=== PATIENT | male | born 1950 | race Caucasian/White ===

== ENCOUNTER 2017-11-25 06:30 | Inpatient (IN) | payer MEDICARE, BC ==
[2017-11-25] MEDS ORDERED: Sodium Chloride 0.9% 1,000 ML IV SCH ×2 (06:45→10:00)
[2017-11-25 06:55] LABS: CHLORIDE,CL 101 mmol/L (98-107); SODIUM,NA 139 mmol/L (136-145)
--- NOTE | 2017-11-25 07:14 | EDM.PDOC ---
ED HPI GENERAL MEDICAL PROBLEM - General Chief Complaint: General Stated Complaint: vomiting Time Seen by Provider: 11/25/17 06:45 Source of Information: Reports: Patient History Limitations: Reports: No Limitations - History of Present Illness INITIAL COMMENTS - FREE TEXT/NARRATIVE: There is Dr. 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 has been having nausea and vomiting all night long with brown emesis by gastroscope which is gastro occult was brought in by ambulance secondary to nausea and vomiting he did receive 4 mg of Zofran IM> Onset: Sudden Duration: Day(s): (1 day) Location: Reports: Abdomen Quality: Reports: Ache Severity: Moderate Worsens with: Reports: None Context: Reports: Other (History of rectal cancer with metastasis to liver pelvis and stomach) Associated Symptoms: Reports: Loss of Appetite, Nausea/Vomiting Treatments AGRICULTURAL CHEMIST: Reports: Other (see below) Other Treatments AGRICULTURAL CHEMIST: zofran per EMS Throat Pain Score (Numeric/FACES): 5 - Related Data Allergies Allergy/AdvReac Type Severity Reaction Status Date / Time No Known Allergies Allergy Verified 11/25/17 06:31 Home Meds: Home Meds Levothyroxine Sodium [Synthroid] 250 mcg PO DAILY 04/23/13 [History] metFORMIN [Glucophage XR] 500 mg PO DAILY 04/23/13 [History] Sertraline HCl 100 mg PO DAILY 07/09/15 [History] Hydrocortisone 10 mg PO QPM 11/25/17 [History] Hydrocortisone 20 mg PO DAILY 11/25/17 [History] Non-Formulary Medication [NF Drug] 1 tab PO BID 11/25/17 [History] Omeprazole 20 mg PO DAILY 11/25/17 [History] Ondansetron [Zofran] 8 mg PO TID PRN 11/25/17 [History] Past Medical History HEENT History: Reports: Impaired Vision Cardiovascular History: Reports: Hypertension Other Gastrointestinal History: vomiting dark brown liquid Psychiatric History: Reports: Depression Endocrine/Metabolic History: Reports: Diabetes, Type II Oncologic (Cancer) History: Reports: Other (See Below) Other Oncologic History: Anal - Past Surgical History Other GI Surgeries/Procedures: liver cancer, anal cancer Social & Family History - Caffeine Use Caffeine Use: Reports: None ED ROS GENERAL - Review of Systems Review Of Systems: See Below Constitutional: Reports: Weakness, Weight Loss Respiratory: Reports: Shortness of Breath (Activity tolerance decrease) Cardiovascular: Reports: No Symptoms Endocrine: Reports: No Symptoms GI/Abdominal: Reports: Anorexia, Distension, Nausea, Vomiting : Reports: Incontinence Musculoskeletal: Reports: Muscle Stiffness Skin: Reports: Change in Color (Secondary to Lovenox injection while hospitalized) ED EXAM, GENERAL - Physical Exam Exam: See Below Exam Limited By: Altered Mental Status General Appearance: WD/WN, Mild Distress, Obese Ears: Normal External Exam, Normal Canal, Hearing Grossly Normal, Normal TMs Nose: Normal Inspection, Normal Mucosa, No Blood Throat/Mouth: Normal Inspection, Normal Lips, Normal Teeth, Normal Gums, Normal Oropharynx, Normal Voice, No Airway Compromise Head: Atraumatic, Normocephalic, Facial Swelling Respiratory/Chest: Decreased Breath Sounds, Crackles Cardiovascular: Normal Peripheral Pulses, Regular Rate, Rhythm, No Edema, No Gallop, No JVD, No Murmur, No Rub GI/Abdominal: Non-Tender, No Mass, Distended, Abnormal Bowel Sounds (Male) Exam: Deferred Rectal (Males) Exam: Deferred Extremities: Normal Inspection, Normal Range of Motion, Non-Tender Neurological: CN II-XII Intact Psychiatric: Depressed Mood Skin Exam: Warm, Dry, Intact, Normal Color, No Rash Lymphatic: No Adenopathy Course - Vital Signs Last Recorded V/S: Last Vital Signs Temp 97.8 F 11/25/17 06:35 Pulse 121 H 11/25/17 06:35 Resp 22 H 11/25/17 06:35 BP 131/77 11/25/17 06:35 Pulse Ox 94 L 11/25/17 06:35 - Orders/Labs/Meds Orders: Active Orders 24 hr Category Date Time Status Implanted Port Access [RC] DAILY Care 11/25/17 06:45 Active OCCULT BLOOD, GASTRIC [OP] Stat Lab 11/25/17 06:48 Ordered Sodium Chloride 0.9% [Normal Saline] 1,000 ml Med 11/25/17 06:45 Active IV ASDIRECTED Medication Orders Sodium Chloride (Normal Saline) 1,000 mls @ 500 mls/hr IV ASDIRECTED [facility] Last Admin: 11/25/17 06:55 Dose: 500 mls/hr Labs: Laboratory Tests 11/25/17 11/25/17 Range/Units 06:41 06:41 WBC 12.6 H (4.0-10.2) K/uL RBC 3.46 L (4.33-5.41) M/uL Hgb 10.8 L (13.1-16.8) g/dL Hct 34.4 L (39.0-49.0) % MCV 99.4 H (84.0-98.0) fL MCH 31.2 (28.2-33.3) pg MCHC 31.4 L (31.7-36.0) g/dL RDW 20.0 H (11.2-14.1) % Plt Count 104 L (150-350) K/uL Neut % (Auto) 85.7 H (45.0-80.0) % Lymph % (Auto) 4.9 L (10.0-50.0) % [place] % (Auto) 9.0 (2.0-14.0) % Eos % (Auto) 0.3 (0.0-5.0) % Baso % (Auto) 0.1 (0.0-2.0) % Neut # (Auto) 10.80 H (1.40-7.00) K/uL Lymph # (Auto) 0.62 (0.50-3.50) K/uL [place] # (Auto) 1.14 H (0.00-1.00) K/uL Eos # (Auto) 0.04 (0.00-0.50) K/uL Baso # (Auto) 0.01 (0.00-0.20) K/uL Sodium 139 (136-145) mmol/L Potassium 3.7 (3.5-5.1) mmol/L Chloride 101 (98-107) mmol/L Carbon Dioxide 25.6 (21.0-32.0) mmol/L BUN 26 H (7-18) mg/dL Creatinine 0.97 (0.51-1.17) mg/dL Est Cr Clr Drug Dosing 74.91 mL/min Estimated GFR (MDRD) > 60 mL/min Glucose 145 H (74-106) mg/dL Calcium 9.4 (8.5-10.1) mg/dL Meds: Medications Generic Name Dose Route Start Last Admin Trade Name Freq PRN Reason Stop Dose Admin Sodium Chloride 1,000 mls @ 500 mls/hr 11/25/17 06:45 11/25/17 06:55 Normal Saline IV 500 mls/hr ASDIRECTED [facility] Administration Departure - Departure Time of Disposition: 09:02 Disposition: Admitted As Inpatient 67 Condition: Fair Clinical Impression: Sepsis, Anal carcinoma, History of known metastasis to liver, Metastasis to bone - Discharge Information Care Plan Goals: Patient will be admitted for antibiotics observation and hydration - Problem List & Annotations (1) History of known metastasis to liver SNOMED Code(s): 864539424 Code(s): Z85.05 - PERSONAL HISTORY OF MALIGNANT NEOPLASM OF LIVER Status: Acute (2) Sepsis SNOMED Code(s): 29111112 Code(s): A41.9 - SEPSIS, UNSPECIFIED ORGANISM Status: Acute Annotation/ Comment:: patient will be sent home to go to radiation treatment. if they do not have beds in [place] to treat sepsis and patients needs further treatment, he will be readmitted here for care. Qualifiers: Sepsis type: sepsis due to unspecified organism Qualified Code(s): A41.9 - Sepsis, unspecified organism (3) Anal carcinoma SNOMED Code(s): 999309218, 728006791 Code(s): C21.0 - MALIGNANT NEOPLASM OF ANUS, UNSPECIFIED Status: Acute Annotation/Comment:: Patient will be admitted to hospital will obtain a CAT scan of the abdomen and start him on antibiotics discussed with Dr. Krause oncology (4) Metastasis to bone Status: Acute - Problem List Review Problem List Initiated/Reviewed/Updated: Yes - My Orders Last 24 Hours: My Active Orders 11/25/17 06:45 Implanted Port Access [RC] DAILY Sodium Chloride 0.9% [Normal Saline] 1,000 ml IV ASDIRECTED 11/25/17 06:48 OCCULT BLOOD, GASTRIC [OP] Stat - Assessment/Plan Admission H&P: Please use this note as an admission H&P Last 24 Hours: My Active Orders 11/25/17 06:45 Implanted Port Access [RC] DAILY Sodium Chloride 0.9% [Normal Saline] 1,000 ml IV ASDIRECTED 11/25/17 06:48 OCCULT BLOOD, GASTRIC [OP] Stat Plan: Patient will be admitted to the hospital for control nausea vomiting and possible sepsis
[2017-11-25] MEDS ORDERED: Ondansetron 4 MG/2 ML SDV IVPUSH ONE (07:17)
[2017-11-25] MEDS ORDERED: Pantoprazole 40 MG Vial IVPUSH ONE (07:18)
[2017-11-25] MEDS ORDERED: Ondansetron 4 MG/2 ML SDV IVPUSH PRN (09:32)
[2017-11-25] MEDS ORDERED: Albuterol/Ipratropium 3.0-0.5 MG/3 ML Neb Soln NEB PRN (09:32)
[2017-11-25] MEDS: Piperacillin/Tazobactam 3.375 GM in Sodium Chloride 0.9% 100 ML IV SCH ×2 (10:52→15:49)
[2017-11-25] MEDS ORDERED: Iopamidol 612 MG/ML 100 ML Bottle IVPUSH ONE (11:47)
[2017-11-25] MEDS ORDERED: Furosemide 40 MG/4 ML VIAL IVPUSH ONE (12:04)
[2017-11-25 12:30] VITALS: BP 145/74
--- NOTE | 2017-11-25 15:49 | PCM.SN ---
- Free Text/Narrative Note: Patient is a 67-year-old admitted with rectal CA with metastasis underwent CAT scan of the stomach revealed complete obstruction of upper small bowel at this time patient will be placed on an nothing by mouth diet start a NG tube to low intermittent suction discuss plan with Dr. Ryder oncology at [place] will transfer to oncology at [place] for further workup and treatment
--- NOTE | 2017-11-25 15:55 | PCM.DCSUM1 ---
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 Diagnosis: Stroke: No - Discharge Data Discharge Date: 11/25/17 Discharge Disposition: DC/Tfer to Acute Hospital 02 Condition: Poor - Discharge Diagnosis/Problem(s) (1) History of known metastasis to liver SNOMED Code(s): 602939530 ICD Code: Z85.05 - PERSONAL HISTORY OF MALIGNANT NEOPLASM OF LIVER Status: Acute Current Visit: Yes (2) Sepsis SNOMED Code(s): 82028679 ICD Code: A41.9 - SEPSIS, UNSPECIFIED ORGANISM Status: Acute Current Visit: Yes Problem Details: patient will be sent home to go to radiation treatment. if they do not have beds in [place] to treat sepsis and patients needs further treatment, he will be readmitted here for care. Qualifiers: Sepsis type: sepsis due to unspecified organism Qualified Code(s): A41.9 - Sepsis, unspecified organism (3) Anal carcinoma SNOMED Code(s): 370371417, 559038305 ICD Code: C21.0 - MALIGNANT NEOPLASM OF ANUS, UNSPECIFIED Status: Acute Current Visit: Yes Problem Details: CAT scan report complete obstruction will transfer to [place] oncology Dr. Ryder (4) Metastasis to bone Status: Acute Current Visit: Yes - Patient Instructions Diet: NPO Driving: Do Not Drive Notify Provider of: Nausea and/or Vomiting - Discharge Plan Home Medications: Home Meds Levothyroxine Sodium [Synthroid] 250 mcg PO DAILY 04/23/13 [History] metFORMIN [Glucophage XR] 500 mg PO DAILY 04/23/13 [History] Sertraline HCl 100 mg PO DAILY 07/09/15 [History] Hydrocortisone 10 mg PO QPM 11/25/17 [History] Hydrocortisone 20 mg PO DAILY 11/25/17 [History] Non-Formulary Medication [NF Drug] 1 tab PO BID 11/25/17 [History] Omeprazole 20 mg PO DAILY 11/25/17 [History] Ondansetron [Zofran] 8 mg PO TID PRN 11/25/17 [History] Forms: ED Department Discharge Referrals: PCP,None [Primary Care Provider] - - Discharge Summary/Plan Comment DC Time >30 min.: No Discharge Summary/Plan Comment: Patient transferred to oncology Dr. Ryder for further workup and treatment - General Info Date of Service: 11/25/17 Functional Status: Reports: New Symptoms (Intestinal obstruction) - Review of Systems General: Reports: Weakness, Fatigue HEENT: Reports: No Symptoms Pulmonary: Reports: Shortness of Breath Cardiovascular: Reports: No Symptoms Gastrointestinal: Reports: Decreased Appetite, Nausea, Vomiting Genitourinary: Reports: Incontinence Musculoskeletal: Reports: No Symptoms Skin: Reports: No Symptoms Neurological: Reports: Confusion Psychiatric: Reports: Agitation - Patient Data Vitals - Most Recent: Last Vital Signs Temp 97.7 F 11/25/17 12:00 Pulse 110 H 11/25/17 12:00 Resp 16 11/25/17 12:00 BP 145/74 H 11/25/17 12:00 Pulse Ox 95 11/25/17 12:00 Weight - Most Recent: 265 lb I&O - Last 24 hours: Intake & Output 11/25/17 11/25/17 11/25/17 06:59 14:59 22:59 Intake Total 240 Balance 240 Lab Results - Last 24 hrs: Laboratory Results - last 24 hr 11/25/17 11/25/17 11/25/17 Range/Units 06:40 06:40 06:41 WBC 12.6 H (4.0-10.2) K/uL RBC 3.46 L (4.33-5.41) M/uL Hgb 10.8 L (13.1-16.8) g/dL Hct 34.4 L (39.0-49.0) % MCV 99.4 H (84.0-98.0) fL MCH 31.2 (28.2-33.3) pg MCHC 31.4 L (31.7-36.0) g/dL RDW 20.0 H (11.2-14.1) % Plt Count 104 L (150-350) K/uL Neut % (Auto) 85.7 H (45.0-80.0) % Lymph % (Auto) 4.9 L (10.0-50.0) % [place] % (Auto) 9.0 (2.0-14.0) % Eos % (Auto) 0.3 (0.0-5.0) % Baso % (Auto) 0.1 (0.0-2.0) % Neut # (Auto) 10.80 H (1.40-7.00) K/uL Lymph # (Auto) 0.62 (0.50-3.50) K/uL [place] # (Auto) 1.14 H (0.00-1.00) K/uL Eos # (Auto) 0.04 (0.00-0.50) K/uL Baso # (Auto) 0.01 (0.00-0.20) K/uL Sodium (136-145) mmol/L Potassium (3.5-5.1) mmol/L Chloride (98-107) mmol/L Carbon Dioxide (21.0-32.0) mmol/L BUN (7-18) mg/dL Creatinine (0.51-1.17) mg/dL Est Cr Clr Drug Dosing mL/min Estimated GFR (MDRD) mL/min Glucose (74-106) mg/dL Lactic Acid 5.0 H (0.4-2.0) mmol/L Calcium (8.5-10.1) mg/dL NT-Pro-B Natriuret Pep 1285 H (0-125) pg/mL Specimen Type Urine Color Urine Appearance Urine pH (5.0-9.0) Ur Specific [place]ore (1.005-1.030) Urine Protein (NEGATIVE) mg/dL Urine Glucose (UA) (NEGATIVE) mg/dL Urine Ketones (NEGATIVE) mg/dL Urine Occult Blood (NEGATIVE) Urine Nitrite (NEGATIVE) Urine Bilirubin (NEGATIVE) Urine Urobilinogen (0.2-1.0) E.U./dL Ur Leukocyte Esterase (NEGATIVE) Urine RBC /HPF Urine WBC /HPF Ur Epithelial Cells /LPF Other Crystals /HPF Amorphous Sediment (0/HPF) /HPF Urine Bacteria (NONE TO FEW) /HPF Hyaline Casts (NEGATIVE) /LPF 11/25/17 11/25/17 Range/Units 06:41 10:00 WBC (4.0-10.2) K/uL RBC (4.33-5.41) M/uL Hgb (13.1-16.8) g/dL Hct (39.0-49.0) % MCV (84.0-98.0) fL MCH (28.2-33.3) pg MCHC (31.7-36.0) g/dL RDW (11.2-14.1) % Plt Count (150-350) K/uL Neut % (Auto) (45.0-80.0) % Lymph % (Auto) (10.0-50.0) % [place] % (Auto) (2.0-14.0) % Eos % (Auto) (0.0-5.0) % Baso % (Auto) (0.0-2.0) % Neut # (Auto) (1.40-7.00) K/uL Lymph # (Auto) (0.50-3.50) K/uL [place] # (Auto) (0.00-1.00) K/uL Eos # (Auto) (0.00-0.50) K/uL Baso # (Auto) (0.00-0.20) K/uL Sodium 139 (136-145) mmol/L Potassium 3.7 (3.5-5.1) mmol/L Chloride 101 (98-107) mmol/L Carbon Dioxide 25.6 (21.0-32.0) mmol/L BUN 26 H (7-18) mg/dL Creatinine 0.97 (0.51-1.17) mg/dL Est Cr Clr Drug Dosing 74.91 mL/min Estimated GFR (MDRD) > 60 mL/min Glucose 145 H (74-106) mg/dL Lactic Acid (0.4-2.0) mmol/L Calcium 9.4 (8.5-10.1) mg/dL NT-Pro-B Natriuret Pep (0-125) pg/mL Specimen Type [place] Urine Color Dark yellow Urine Appearance Slightly cloudy Urine pH 5.5 (5.0-9.0) Ur Specific Commodore 1.015 (1.005-1.030) Urine Protein 30 H (NEGATIVE) mg/dL Urine Glucose (UA) Negative (NEGATIVE) mg/dL Urine Ketones 15 H (NEGATIVE) mg/dL Urine Occult Blood Trace-intact H (NEGATIVE) Urine Nitrite Negative (NEGATIVE) Urine Bilirubin Moderate H (NEGATIVE) Urine Urobilinogen 2.0 H (0.2-1.0) E.U./dL Ur Leukocyte Esterase Negative (NEGATIVE) Urine RBC 5-10 H /HPF Urine WBC 0-5 /HPF Ur Epithelial Cells Many H /LPF Other Crystals Moderate /HPF Amorphous Sediment Moderate H (0/HPF) /HPF Urine Bacteria Few (NONE TO FEW) /HPF Hyaline Casts Few H (NEGATIVE) /LPF EDMUNDO Results - Last 24 hrs: Microbiology 11/25/17 06:48 Gastric Occult Blood - Final Gastric Fluid Med Orders - Current: Current Medications Albuterol/Ipratropium (Duoneb 3.0-0.5 Mg/3 Ml) 3 ml NEB Q4H PRN PRN Reason: Dyspnea Enoxaparin Sodium (Lovenox) 40 mg SUBCUT DAILY [facility] Piperacillin Sod/Tazobactam (Sod 3.375 gm/ Sodium Chloride) 100 mls @ 200 mls/ hr IV Q6H [facility] Last Admin: 11/25/17 15:49 Dose: 200 mls/hr Sodium Chloride (Normal Saline) 1,000 mls @ 75 mls/hr IV ASDIRECTED [facility] Last Admin: 11/25/17 10:52 Dose: 75 mls/hr Ondansetron HCl (Zofran) 4 mg IVPUSH Q6H PRN PRN Reason: Nausea/Vomiting Discontinued Medications Furosemide (Lasix) 40 mg IVPUSH NOW ONE Stop: 11/25/17 12:05 Last Admin: 11/25/17 12:38 Dose: 40 mg Sodium Chloride (Normal Saline) 1,000 mls @ 500 mls/hr IV ASDIRECTED [facility] Last Admin: 11/25/17 06:55 Dose: 500 mls/hr Iopamidol (Isovue-300 (61%)) 100 ml IVPUSH ONETIME ONE Stop: 11/25/17 11:48 Last Admin: 11/25/17 13:40 Dose: 100 ml Ondansetron HCl (Zofran) 4 mg IVPUSH ONETIME ONE Stop: 11/25/17 07:18 Last Admin: 11/25/17 07:33 Dose: 4 mg Pantoprazole Sodium (Protonix Iv) 40 mg IVPUSH ONETIME ONE Stop: 11/25/17 07:19 Last Admin: 11/25/17 07:25 Dose: 40 mg - Exam Quality Assessment: Reports: Supplemental Oxygen (Pleural effusion saturations in the 80s room air) General: Reports: Alert, Cooperative HEENT: Reports: Pupils Equal, Pupils Reactive, EOMI, Mucous Membr. Moist/[place]: Reports: Supple Lungs: Reports: Clear to Auscultation, Rales Cardiovascular: Reports: Regular Rate, Regular Rhythm GI/Abdominal Exam: Distended, Abnormal Bowel Sounds (Hypoactive) Rectal (Males) Exam: Deferred Back Exam: Reports: Normal Inspection, Full Range of Motion Extremities: Normal Inspection, Normal Range of Motion, Non-Tender, No Pedal Edema, Normal Capillary Refill Neurological: Reports: No New Focal Deficit Psy/Mental Status: Reports: Depressed
[2017-11-26] MEDS ORDERED: Enoxaparin 40 MG/0.4 ML Syringe SUBCUT SCH (08:00)
== END 2017-11-25 16:40 | DRG 872 ==
LOC: LL.ED 06:30 → LL.MS 09:00 → UNDOADMIN 09:00 → LL.MS 09:32 → UNDODISIN 16:40
PROVIDERS: ADMIT Family Medicine; ATTEND Family Medicine
PROC: 0D9670Z Drainage of Stomach with Drainage Device, Via Natural or Artificial Opening (ICD-10-PCS; principal; 2017-11-25)
DX: A41.9 Sepsis, unspecified organism (principal); C20 Malignant neoplasm of rectum; C78.7 Secondary malignant neoplasm of liver and intrahepatic bile duct; C79.51 Secondary malignant neoplasm of bone; C78.89 Secondary malignant neoplasm of other digestive organs; K56.601 Complete intestinal obstruction, unspecified as to cause; H54.7 Unspecified visual loss; I10 Essential (primary) hypertension; F32.9 Major depressive disorder, single episode, unspecified; E11.9 Type 2 diabetes mellitus without complications; R11.2 Nausea with vomiting, unspecified; R32 Unspecified urinary incontinence; E66.9 Obesity, unspecified; Z68.39 Body mass index [BMI] 39.0-39.9, adult; Z79.84 Long term (current) use of oral hypoglycemic drugs; R06.02 Shortness of breath; R41.82 Altered mental status, unspecified; R53.1 Weakness; R63.4 Abnormal weight loss; R14.0 Abdominal distension (gaseous); Z79.899 Other long term (current) drug therapy
CPT/HCPCS: 36415; 71045; 80048; 82271; 83605; 83880; 85025; 87040 ×2; 96361; 96374; 96375; 99285; C9113; J2405; J7030; 51702; 74177; 81001; 87086; J1940; J2543; J7050; Q9967